=== PATIENT | female | born 1970 | race Two or more races ===

== ENCOUNTER 2023-09-04 00:46 | Emergency (ER) | payer OTHER ==
[~2023-09-04] VITALS: Ht 165.1 cm; Wt 104.3 kg
[2023-09-04] MEDS ORDERED: MEDROLPACK PO (03:52)
[2023-09-04] MEDS ORDERED: DICLOFENAC POTA50 MG PO (03:52)
== END 2023-09-04 04:19 | disposition home or self-care (01) ==
LOC: ER 00:47
DX: M25.511 Pain in right shoulder (principal)